=== PATIENT | female | born 1965 | race Caucasian/White ===

== ENCOUNTER 2016-08-09 09:42 | Emergency (ER) | payer MEDICARE, MEDICAID ==
[2007-06-13 16:34] VITALS: BP 104/61
[~2016-08-09] VITALS: Ht 157.5 cm; Wt 59.1 kg
[~2016-08-09 09:42] MED LIST: ABILIFY 10MG TA10 MG PO; ABILIFY5 MG PO; ACETAMINOPHEN W1 TA6 PO; ACTIQ; ADVAIR 250/28 DISKU1 IH; ADVAIR IH; ALPRAZOLAM PO; AMITRIPTYLINE H10 M1 PO; ANORO IH; BACTRIM DS 8001 TAB PO; CAMBIA50 MG PO; CELEXA; CELEXA 20MG20 MG/TAB PO; CELEXA40 MG PO; CEPHALEXIN500 M1 PO; CITALOPRAM40 MG PO; DEPAKOTE ER 50500 MG PO; DIAZEPAM PO; DIFLUCAN PO; DILANTIN; DILANTIN 100MG100 MG PO; DILAUDID 2MG TAB2 MG PO; DIVALPROEX DR500 MG PO; DOXYCYCLINE 10100 MG PO; EC NAPROSYN500 MG PO; EXCEDRIN TENSION HA PO; FLEXERIL10 MG PO; GABAPENTIN; IMITREX 6M6 MG/0.5 M SQ; IMITREX100 MG PO; IMITREX6 MG/0.51 SC; LEVAQUIN 5500 MG/TA1 PO; LEXAPRO; LEXAPRO 10MG10 MG PO; LIORESAL 1010 MG/TAB PO; LORTAB 10/500 51 TAB PO; LORTAB 5/500 501 TAB PO; LORTAB 7.5/5001 TAB PO; METRONIDAZOLE500 MG PO; MOBIC 7.5MG7.5 MG PO; MORPHINE; MS CONTIN 115 MG/TAB PO; MYCOLOG-II 10001 CRE TP; NAPROSYN PO; NAPROSYN500 MG PO; NAPROXEN500 MG PO; NORCO 325 MG-101 TAB PO; NORCO 325 MG-51 TAB PO; NUCYNTA ER50 MG PO; OXYCODONE HCL5 MG PO; PERCOCET 325 MG1 TA2 PO; PERCOCET 5/321 UDTAB PO; PERCOCET 500 MG1 TAB PO; PERCOCET 650 MG1 TAB PO; PERCR 7.5 PO; PHENERGAN 25 TA25 MG PO; SEE COMMENT TP; SEE INSTRUCTIONS IT; SEPTRA DS 8001 TAB PO; SOMA 350MG350 MG/TAB PO; SOMA350 MG PO; TOPAMAX50 MG PO; TOPROL XL25 MG PO; VALIUM 5MG T5 MG/TAB PO; VANCOMYCIN750 MG/150 IV; VENTOLIN0.09 MG IH; ZITHROMAX Z PA250 MG PO; ZOFRAN ODT4 MG PO; [UNRECOGNIZED DRUG - SUPPLY]; blood pressure
[2016-08-09 09:57] VITALS: TEMP 98.3
[2016-08-09] MEDS ORDERED: ULTRAM 50MG TAB50 MG PO (10:49)
[2016-08-09] MEDS ORDERED: IBU600 MG PO (10:49)
[2016-08-09 11:00] VITALS: BP 101/73; PULSE 82
== END 2016-08-09 11:03 | disposition home or self-care (01) ==
LOC: COL.ER 09:42
DX: S40.011A Contusion of right shoulder, initial encounter (principal); W19.XXXA Unspecified fall, initial encounter; G40.909 Epilepsy, unspecified, not intractable, without status epilepticus
CPT/HCPCS: J1885

== ENCOUNTER → 2016-09-02 | Outpatient (CLI) | payer MEDICARE, MEDICAID ==
[~2016-09-02] MED LIST changes: +IBU600 MG PO; +ULTRAM 50MG TAB50 MG PO; +XANAX 1MG1 MG PO
== END ==
LOC: COL.RAD 07:59
DX: M25.511 Pain in right shoulder (principal)
CPT/HCPCS: Q9967

== ENCOUNTER 2016-11-08 17:16 | Emergency (ER) | payer MEDICARE, MEDICAID ==
[2007-06-13 16:34] VITALS: BP 104/61
[~2016-11-08] VITALS: Ht 157.5 cm; Wt 67.7 kg
[~2016-11-08 17:16] MED LIST changes: -XANAX 1MG1 MG PO
[2016-11-08 17:21] VITALS: TEMP 98
[2016-11-08] MEDS ORDERED: XANAX 1MG1 MG PO (19:16)
[2016-11-08] MEDS ORDERED: MOBIC 7.5MG7.5 MG PO (19:27)
[2016-11-08 19:46] VITALS: BP 118/67; PULSE 74
== END 2016-11-08 19:50 | disposition home or self-care (01) ==
LOC: COL.ER 17:16
DX: M25.511 Pain in right shoulder (principal)
CPT/HCPCS: J1170

== ENCOUNTER → 2016-12-30 | Outpatient (CLI) | payer OTHER ==
[~2016-12-30] MED LIST changes: +XANAX 1MG1 MG PO
== END ==
LOC: ZCOL.LAB 16:14
DX: Z86.14 Personal history of Methicillin resistant Staphylococcus aureus infection (principal); Z01.818 Encounter for other preprocedural examination

== ENCOUNTER 2017-01-13 07:45 | Outpatient (RCR) | payer OTHER | END 2017-01-18 11:11 | disposition home or self-care (01) | LOC: WSPT 07:45 | DX: M51.36 Other intervertebral disc degeneration, lumbar region (principal) ==

== ENCOUNTER 2017-04-15 16:42 | Emergency (ER) | payer MEDICARE, MEDICAID ==
[2007-06-13 16:34] VITALS: BP 104/61
[2017-04-15 16:53] VITALS: BP 110/68; TEMP 97.2
[2017-04-15 18:48] VITALS: PULSE 75
== END 2017-04-15 18:48 | disposition home or self-care (01) ==
LOC: COL.ER 16:42
DX: G43.909 Migraine, unspecified, not intractable, without status migrainosus (principal); F17.210 Nicotine dependence, cigarettes, uncomplicated; Z90.710 Acquired absence of both cervix and uterus
CPT/HCPCS: J1170; J1200; J2550

== ENCOUNTER 2017-06-24 23:32 | Emergency (ER) | payer MEDICARE, MEDICAID ==
[2007-06-13 16:34] VITALS: BP 104/61
[~2017-06-24] VITALS: Ht 157.5 cm; Wt 63.6 kg
[2017-06-24 23:34] VITALS: TEMP 98.5
[2017-06-24 23:55] LABS: BASO % 0.5 % (0.0-2.0); EOS # 0.3 (0.0-0.7); EOS % 3.7 % (0-4.0); GRAN % 41.3 % (42.2-75.2); HEMATOCRIT 41.8 % (37.0-47.0); HEMOGLOBIN 14.8 g/dl (12.5-16.0); LYMPH # 3.2 (1.2-3.4); LYMPH % 43.2 % (20.0-51.0); MEAN CELL VOLUME 95 fl (80.0-100.0); MEAN CORPUSCULAR HEMOGLOBIN 34 pg (27.0-31.0); MEAN CORPUSCULAR HGB CONC 35 g/dl (33.0-37.0); MEAN PLATELET VOLUME 8.8 fl (7.4-10.4); MONO # 0.8 (0.1-0.6); PLATELET COUNT 293 K/mm3 (130-400); RED BLOOD COUNT 4.42 M/mm3 (4.10-5.30); WHITE BLOOD COUNT 7.3 K/mm3 (4.8-10.8)
[2017-06-25 00:06] LABS: ADJUSTED CALCIUM 9.4 mg/dL (8.4-10.2); ALBUMIN 4.3 gm/dL (3.5-5.0); BILIRUBIN,TOTAL 0.5 mg/dL (0.0-1.0); CALCIUM 9.6 mg/dL (8.4-10.2); CREATININE, serum 0.8 mg/dL (0.52-1.25); MAGNESIUM 1.6 mg/dL (1.6-2.3); PHOSPHOROUS 4.3 mg/dL (2.5-4.5); POTASSIUM 4.2 mmol/L (3.4-5.0)
[2017-06-25 00:20] LABS: COLLECTION METHOD CLEAN CATCH
[2017-06-25 00:23] LABS: PROLACTIN 64.9 ng/mL (3.0-18.6)
[2017-06-25 00:26] LABS: PH 6 (5-8); SQUAMOUS EPITHELIAL None Seen /hpf; URINE APPEARANCE Clear; URINE BACTERIA None Seen /hpf; URINE BILIRUBIN Negative (NEGATIVE); URINE BLOOD 1+ (NEGATIVE); URINE COLOR Yellow; URINE GLUCOSE Negative (NEGATIVE); URINE KETONE Trace (NEGATIVE); URINE LEUKOCYTE ESTERASE Negative (NEGATIVE); URINE PROTEIN(semi-quant) Negative (NEGATIVE); URINE RBC 0-2 /hpf; URINE UROBILINOGEN Negative (NEGATIVE); URINE WBC 0-2 /hpf
[2017-06-25] MEDS ORDERED: ATIVAN 0.50.5 MG/TAB PO (02:06)
[2017-06-25 02:37] VITALS: BP 104/72; PULSE 97
== END 2017-06-25 02:38 | disposition home or self-care (01) ==
LOC: COL.ER 23:32
PROVIDERS: Emergency Medicine
DX: G40.909 Epilepsy, unspecified, not intractable, without status epilepticus (principal); G43.909 Migraine, unspecified, not intractable, without status migrainosus
CPT/HCPCS: J2060; J7030

== ENCOUNTER 2017-07-16 16:30 | Emergency (ER) | payer MEDICARE, MEDICAID ==
[2007-06-13 16:34] VITALS: BP 104/61
[~2017-07-16] VITALS: Ht 157.5 cm; Wt 63.6 kg
[~2017-07-16 16:30] MED LIST changes: +ATIVAN 0.50.5 MG/TAB PO
[2017-07-16 16:37] VITALS: BP 122/64; TEMP 100.1
[2017-07-16 18:28] VITALS: PULSE 106
== END 2017-07-16 18:29 | disposition home or self-care (01) ==
LOC: COL.ER 16:30
DX: M25.511 Pain in right shoulder (principal); F17.210 Nicotine dependence, cigarettes, uncomplicated; Z98.890 Other specified postprocedural states; X58.XXXA Exposure to other specified factors, initial encounter
CPT/HCPCS: J1170

== ENCOUNTER 2017-09-17 10:44 | Emergency (ER) | payer MEDICARE, MEDICAID ==
[2007-06-13 16:34] VITALS: BP 104/61
[~2017-09-17] VITALS: Ht 157.5 cm; Wt 63.6 kg
[2017-09-17 10:46] VITALS: BP 127/69; TEMP 98.9
[2017-09-17] MEDS ORDERED: NORCO 325 MG-7.1 TAB PO (10:50)
[2017-09-17] MEDS ORDERED: IMITREX 6M6 MG/0.5 M SQ (10:50)
[2017-09-17] MEDS ORDERED: PHENERGAN 25 TA25 MG PO (10:51)
[2017-09-17] MEDS ORDERED: LEXAPRO20 MG PO (10:51)
[2017-09-17 11:56] VITALS: PULSE 83
== END 2017-09-17 11:57 | disposition home or self-care (01) ==
LOC: COL.ER 10:44
DX: G43.909 Migraine, unspecified, not intractable, without status migrainosus (principal); F41.9 Anxiety disorder, unspecified; K21.9 Gastro-esophageal reflux disease without esophagitis; G40.909 Epilepsy, unspecified, not intractable, without status epilepticus; J44.9 Chronic obstructive pulmonary disease, unspecified; F17.210 Nicotine dependence, cigarettes, uncomplicated; Z90.710 Acquired absence of both cervix and uterus
CPT/HCPCS: J1170; J2550

== ENCOUNTER → 2017-09-26 | Outpatient (CLI) | payer MEDICARE, MEDICAID ==
[~2017-09-26] MED LIST changes: +LEXAPRO20 MG PO; +NORCO 325 MG-7.1 TAB PO
== END ==
LOC: COL.RAD 10:07
DX: J44.1 Chronic obstructive pulmonary disease with (acute) exacerbation (principal)

== ENCOUNTER 2017-10-12 15:57 | Emergency (ER) | payer MEDICARE, MEDICAID ==
[2007-06-13 16:34] VITALS: BP 104/61
[~2017-10-12] VITALS: Ht 157.5 cm; Wt 63.6 kg
[2017-10-12 15:59] VITALS: BP 140/66; TEMP 97.7
[2017-10-12 17:06] VITALS: PULSE 75
== END 2017-10-12 17:08 | disposition home or self-care (01) ==
LOC: COL.ER 15:57
DX: G43.909 Migraine, unspecified, not intractable, without status migrainosus (principal); G40.909 Epilepsy, unspecified, not intractable, without status epilepticus; J44.9 Chronic obstructive pulmonary disease, unspecified; K21.9 Gastro-esophageal reflux disease without esophagitis; F41.9 Anxiety disorder, unspecified; F17.210 Nicotine dependence, cigarettes, uncomplicated; Z86.79 Personal history of other diseases of the circulatory system; Z88.1 Allergy status to other antibiotic agents; Z88.6 Allergy status to analgesic agent; Z88.8 Allergy status to other drugs, medicaments and biological substances; Z90.710 Acquired absence of both cervix and uterus; Z98.890 Other specified postprocedural states
CPT/HCPCS: J2270; J2550

== ENCOUNTER 2017-12-21 20:32 | Emergency (ER) | payer MEDICARE, MEDICAID ==
[2007-06-13 16:34] VITALS: BP 104/61
[~2017-12-21] VITALS: Ht 177.8 cm; Wt 56.8 kg
[2017-12-21 20:36] VITALS: TEMP 97.7
[2017-12-21 22:31] VITALS: BP 105/75; PULSE 70
== END 2017-12-21 22:34 | disposition home or self-care (01) ==
LOC: COL.ER 20:32
DX: G43.909 Migraine, unspecified, not intractable, without status migrainosus (principal); F17.210 Nicotine dependence, cigarettes, uncomplicated
CPT/HCPCS: J0780; J1170; J1200; J1885; J7030

== ENCOUNTER 2018-06-24 14:00 | Emergency (ER) | payer MEDICARE, MEDICAID ==
[2007-06-13 16:34] VITALS: BP 104/61
[~2018-06-24] VITALS: Ht 157.5 cm; Wt 61.4 kg
[2018-06-24 14:04] VITALS: BP 137/65; TEMP 98.2
[2018-06-24 16:00] VITALS: PULSE 91
== END 2018-06-24 16:00 | disposition home or self-care (01) ==
LOC: COL.ER 14:00
DX: G43.909 Migraine, unspecified, not intractable, without status migrainosus (principal); J44.9 Chronic obstructive pulmonary disease, unspecified; F41.9 Anxiety disorder, unspecified; F17.210 Nicotine dependence, cigarettes, uncomplicated; Z90.710 Acquired absence of both cervix and uterus
CPT/HCPCS: J1170; J2405

== ENCOUNTER 2018-07-13 14:02 | Emergency (ER) | payer MEDICARE, MEDICAID ==
[2007-06-13 16:34] VITALS: BP 104/61
[~2018-07-13] VITALS: Ht 157.5 cm; Wt 61.4 kg
[2018-07-13 14:09] VITALS: TEMP 98.1
[2018-07-13 15:25] VITALS: BP 143/80; PULSE 78
== END 2018-07-13 15:28 | disposition home or self-care (01) ==
LOC: COL.ER 14:02
DX: G43.909 Migraine, unspecified, not intractable, without status migrainosus (principal); F41.9 Anxiety disorder, unspecified; Z98.890 Other specified postprocedural states
CPT/HCPCS: J1170; J2550

== ENCOUNTER 2018-08-05 14:28 | Emergency (ER) | payer MEDICARE, MEDICAID ==
[2007-06-13 16:34] VITALS: BP 104/61
[~2018-08-05] VITALS: Ht 157.5 cm; Wt 56.8 kg
[2018-08-05 14:28] VITALS: TEMP 99
[2018-08-05 15:04] LABS: BASO % 0.5 % (0.0-2.0); EOS # 0.1 (0.0-0.7); EOS % 1.6 % (0-4.0); GRAN # 3.7 (1.4-6.5); GRAN % 64.8 % (42.2-75.2); HEMATOCRIT 39.4 % (37.0-47.0); HEMOGLOBIN 13.8 g/dl (12.5-16.0); LYMPH # 1.3 (1.2-3.4); LYMPH % 23.2 % (20.0-51.0); MEAN CELL VOLUME 96 fl (80.0-100.0); MEAN CORPUSCULAR HEMOGLOBIN 34 pg (27.0-31.0); MEAN CORPUSCULAR HGB CONC 35 g/dl (33.0-37.0); MEAN PLATELET VOLUME 8.9 fl (7.4-10.4); MONO # 0.6 (0.1-0.6); MONO % 9.7 % (1.7-9.3); PLATELET COUNT 204 K/mm3 (130-400); REDCELL DISTRIBUTION WIDTH-CV 14.1 % (11.5-14.5)
[2018-08-05 15:16] LABS: ALBUMIN 3.8 gm/dL (3.5-5.0); BILIRUBIN,TOTAL 0.2 mg/dL (0.0-1.0); CALCIUM 9.3 mg/dL (8.4-10.2); CREATININE, serum 0.83 mg/dL (0.52-1.25); TOTAL PROTEIN 6.9 gm/dL (6.4-8.2)
[2018-08-05 15:25] LABS: POTASSIUM 4.9 mmol/L (3.4-5.0)
[2018-08-05] MEDS ORDERED: ZANAFLEX CAPSULE2 MG PO (16:54)
[2018-08-05 16:58] VITALS: BP 93/62; PULSE 64
== END 2018-08-05 17:55 | disposition home or self-care (01) ==
LOC: COL.ER 14:28
PROVIDERS: Nurse Practitioner Primary Care
DX: G40.909 Epilepsy, unspecified, not intractable, without status epilepticus (principal)

== ENCOUNTER 2018-08-16 13:22 | Emergency (ER) | payer MEDICARE, MEDICAID ==
[2007-06-13 16:34] VITALS: BP 104/61
[~2018-08-16] VITALS: Ht 157.5 cm; Wt 56.8 kg
[~2018-08-16 13:22] MED LIST changes: +ZANAFLEX CAPSULE2 MG PO
[2018-08-16 13:24] VITALS: BP 137/78; TEMP 98
[2018-08-16] MEDS ORDERED: IMITREX ST6 MG/0.51 SC (13:54)
[2018-08-16 14:55] VITALS: PULSE 84
== END 2018-08-16 14:55 | disposition home or self-care (01) ==
LOC: COL.ER 13:22
DX: G43.909 Migraine, unspecified, not intractable, without status migrainosus (principal); F17.210 Nicotine dependence, cigarettes, uncomplicated; F41.9 Anxiety disorder, unspecified; F32.9 Major depressive disorder, single episode, unspecified; G40.909 Epilepsy, unspecified, not intractable, without status epilepticus; Z98.890 Other specified postprocedural states
CPT/HCPCS: J1170; J2550

== ENCOUNTER 2018-09-10 17:30 | Emergency (ER) | payer MEDICARE, MEDICAID ==
[2007-06-13 16:34] VITALS: BP 104/61
[~2018-09-10] VITALS: Ht 157.5 cm; Wt 57.7 kg
[~2018-09-10 17:30] MED LIST changes: +IMITREX ST6 MG/0.51 SC
[2018-09-10 17:40] VITALS: BP 1125/65; TEMP 97.9
[2018-09-10 18:57] VITALS: PULSE 68
== END 2018-09-10 18:58 | disposition home or self-care (01) ==
LOC: COL.ER 17:30
DX: G43.909 Migraine, unspecified, not intractable, without status migrainosus (principal); J44.9 Chronic obstructive pulmonary disease, unspecified; F32.9 Major depressive disorder, single episode, unspecified; F17.210 Nicotine dependence, cigarettes, uncomplicated; F41.9 Anxiety disorder, unspecified; Z98.51 Tubal ligation status; Z90.710 Acquired absence of both cervix and uterus
CPT/HCPCS: J1170; J2550

== ENCOUNTER → 2018-09-20 | Outpatient (CLI) | payer MEDICARE, MEDICAID | LOC: BHSO 09:52 | DX: F06.32 Mood disorder due to known physiological condition with major depressive-like episode (principal) ==

== ENCOUNTER 2018-11-05 14:32 | Emergency (ER) | payer MEDICARE, MEDICAID ==
[2007-06-13 16:34] VITALS: BP 104/61
[~2018-11-05] VITALS: Ht 157.5 cm; Wt 56.8 kg
[2018-11-05 14:40] VITALS: BP 138/78; TEMP 97.9
[2018-11-05 16:23] VITALS: PULSE 97
== END 2018-11-05 16:25 | disposition home or self-care (01) ==
LOC: COL.ER 14:32
DX: G43.909 Migraine, unspecified, not intractable, without status migrainosus (principal); F41.9 Anxiety disorder, unspecified; F17.210 Nicotine dependence, cigarettes, uncomplicated
CPT/HCPCS: J1170; J1200; J1885; J2550

== ENCOUNTER 2018-12-29 14:54 | Emergency (ER) | payer MEDICARE, MEDICAID ==
[2007-06-13 16:34] VITALS: BP 104/61
[~2018-12-29] VITALS: Ht 157.5 cm; Wt 57.7 kg
[2018-12-29 15:03] VITALS: BP 139/69; TEMP 97.8
[2018-12-29 17:26] VITALS: PULSE 80
== END 2018-12-29 17:27 | disposition home or self-care (01) ==
LOC: COL.ER 14:54
DX: G43.909 Migraine, unspecified, not intractable, without status migrainosus (principal); F32.9 Major depressive disorder, single episode, unspecified; F41.9 Anxiety disorder, unspecified; F17.210 Nicotine dependence, cigarettes, uncomplicated; Z98.890 Other specified postprocedural states
CPT/HCPCS: J1170; J2550

== ENCOUNTER 2019-01-28 15:46 | Emergency (ER) | payer MEDICARE, MEDICAID ==
[2007-06-13 16:34] VITALS: BP 104/61
[~2019-01-28] VITALS: Ht 157.5 cm; Wt 56.8 kg
[2019-01-28 16:30] VITALS: TEMP 98
[2019-01-28 20:20] VITALS: BP 128/71; PULSE 74
== END 2019-01-28 20:22 | disposition home or self-care (01) ==
LOC: COL.ER 15:46
DX: G43.909 Migraine, unspecified, not intractable, without status migrainosus (principal); M25.511 Pain in right shoulder; F41.9 Anxiety disorder, unspecified; Z87.828 Personal history of other (healed) physical injury and trauma; F17.210 Nicotine dependence, cigarettes, uncomplicated
CPT/HCPCS: J1170; J2550

== ENCOUNTER → 2019-02-06 | Outpatient (CLI) | payer MEDICARE, MEDICAID | LOC: COL.RAD 13:20 | DX: M75.121 Complete rotator cuff tear or rupture of right shoulder, not specified as traumatic (principal); Z98.890 Other specified postprocedural states; Z98.1 Arthrodesis status | CPT/HCPCS: Q9967 ==

== ENCOUNTER 2019-02-16 16:58 | Emergency (ER) | payer MEDICARE, MEDICAID ==
[2007-06-13 16:34] VITALS: BP 104/61
[~2019-02-16] VITALS: Ht 157.5 cm; Wt 54.5 kg
[2019-02-16 17:20] VITALS: BP 128/75; TEMP 97.5
[2019-02-16] MEDS ORDERED: NORCO 325 MG-51 TAB PO (18:38)
[2019-02-16 19:15] VITALS: PULSE 78
== END 2019-02-16 19:15 | disposition home or self-care (01) ==
LOC: COL.ER 16:58
DX: M25.511 Pain in right shoulder (principal); G89.29 Other chronic pain; G43.909 Migraine, unspecified, not intractable, without status migrainosus
CPT/HCPCS: J1885

== ENCOUNTER → 2019-03-06 | Outpatient (CLI) | payer MEDICARE, MEDICAID | LOC: ZCOL.LAB 11:36 | DX: Z01.812 Encounter for preprocedural laboratory examination (principal); Z86.14 Personal history of Methicillin resistant Staphylococcus aureus infection ==

== ENCOUNTER 2019-04-26 15:16 | Emergency (ER) | payer MEDICARE, MEDICAID ==
[2007-06-13 16:34] VITALS: BP 104/61
[~2019-04-26] VITALS: Ht 157.5 cm; Wt 55.9 kg
[2019-04-26 15:47] VITALS: BP 145/72; TEMP 97.9
[2019-04-26 18:51] VITALS: PULSE 80
== END 2019-04-26 18:51 | disposition home or self-care (01) ==
LOC: COL.ER 15:16
DX: G43.909 Migraine, unspecified, not intractable, without status migrainosus (principal); F17.210 Nicotine dependence, cigarettes, uncomplicated
CPT/HCPCS: J1170; J1200; J1885; J2550

== ENCOUNTER → 2019-04-26 | Outpatient (CLI) | payer MEDICARE, MEDICAID | LOC: COL.RAD 13:52 | DX: M75.121 Complete rotator cuff tear or rupture of right shoulder, not specified as traumatic (principal) | CPT/HCPCS: Q9967 ==

== ENCOUNTER 2019-06-13 11:30 | Emergency (ER) | payer MEDICARE, MEDICAID ==
[2007-06-13 16:34] VITALS: BP 104/61
[~2019-06-13] VITALS: Ht 157.5 cm; Wt 54.5 kg
[2019-06-13 12:51] VITALS: BP 102/58; PULSE 71; TEMP 98.2
== END 2019-06-13 13:00 | disposition home or self-care (01) ==
LOC: COL.ER 11:30
DX: R51 Headache (principal)
CPT/HCPCS: J0780; J1200; J1885

== ENCOUNTER 2019-07-15 12:35 | Emergency (ER) | payer MEDICARE, MEDICAID ==
[2007-06-13 16:34] VITALS: BP 104/61
[~2019-07-15] VITALS: Ht 157.5 cm; Wt 57.2 kg
[2019-07-15 12:39] VITALS: BP 116/64; TEMP 97.5
[2019-07-15 14:57] VITALS: PULSE 90
== END 2019-07-15 14:57 | disposition home or self-care (01) ==
LOC: COL.ER 12:35
DX: G43.909 Migraine, unspecified, not intractable, without status migrainosus (principal); F17.210 Nicotine dependence, cigarettes, uncomplicated; Z98.51 Tubal ligation status; Z98.890 Other specified postprocedural states
CPT/HCPCS: J1170; J1885; J2550

== ENCOUNTER → 2019-07-23 | Outpatient (CLI) | payer MEDICARE, MEDICAID | LOC: COL.RAD 11:40 | DX: M25.511 Pain in right shoulder (principal) ==

== ENCOUNTER 2019-07-28 11:14 | Emergency (ER) | payer MEDICARE, MEDICAID ==
[2007-06-13 16:34] VITALS: BP 104/61
[~2019-07-28] VITALS: Ht 160 cm; Wt 57.2 kg
[2019-07-28 11:17] VITALS: BP 114/56; TEMP 98.2
[2019-07-28] MEDS ORDERED: DEPAKOTE ER 50500 MG PO (11:35)
[2019-07-28 13:08] VITALS: PULSE 82
== END 2019-07-28 13:08 | disposition home or self-care (01) ==
LOC: COL.ER 11:14
DX: G43.909 Migraine, unspecified, not intractable, without status migrainosus (principal); F41.9 Anxiety disorder, unspecified; F17.210 Nicotine dependence, cigarettes, uncomplicated
CPT/HCPCS: J0780; J1200; J1885

== ENCOUNTER 2019-09-24 11:34 | Emergency (ER) | payer MEDICARE, MEDICAID ==
[2007-06-13 16:34] VITALS: BP 104/61
[~2019-09-24] VITALS: Ht 160 cm; Wt 56.8 kg
[2019-09-24 11:38] VITALS: TEMP 97.6
[2019-09-24] MEDS ORDERED: ZYPREXA20 MG PO (11:46)
[2019-09-24] MEDS ORDERED: SOMA250 MG PO (11:46)
[2019-09-24] MEDS ORDERED: BENADRYL50 MG PO (11:46)
[2019-09-24] MEDS ORDERED: PHENERGAN 25 TA25 MG PO (11:47)
[2019-09-24 13:19] VITALS: BP 140/80; PULSE 81
== END 2019-09-24 13:20 | disposition home or self-care (01) ==
LOC: COL.ER 11:34
DX: G43.909 Migraine, unspecified, not intractable, without status migrainosus (principal); F41.9 Anxiety disorder, unspecified; F17.210 Nicotine dependence, cigarettes, uncomplicated; Z90.710 Acquired absence of both cervix and uterus
CPT/HCPCS: J0780; J1885